=== PATIENT | female | born 1990 | race Hispanic/Latino ===

== ENCOUNTER 2024-04-21 19:11 | Emergency (ER) | payer OTHER, SELFPAY ==
[2024-04-21] MEDS ORDERED: Dexamethasone 4 MG TAB ONE (19:54)
[2024-04-21] MEDS ORDERED: Acetaminophen 500 MG TAB ONE (19:54)
[2024-04-21] MEDS ORDERED: Ventolin HFA Inhaler 60 PUFF INHALER ONE (20:00)
== END 2024-04-21 21:30 | disposition home or self-care (01) ==
LOC: CSHERS 19:11
DX: H66.91 Otitis media, unspecified, right ear (principal)
CPT/HCPCS: 71045; 87081; 87430; 94664; 94760; J8540